=== PATIENT | male | born 1960 ===

== ENCOUNTER → 2022-07-30 09:44 | Outpatient (CLI) | payer OTHER, SELFPAY ==
--- NOTE | ~2022-07-30 | MR_ITS ---
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 TECHNIQUE: Magnetic resonance imaging (MRI) of the face was performed without and with 20 mL Multihan ce intravenous contrast. A marker was placed over the site of the excision. Sequences included axial and coronal T1-weighted FSE and T2-weighted FS FSE, axial T1-weighted FS FSE and post contrast axial and coronal T1-weighted FS FSE. COMPARISON: None. FINDINGS: No evident nodular soft tissue density or non masslike enhancement in the subcutaneous tissues underl shaun the marker the region of concern which overlies the cephalad aspect of the left temporalis muscl e. Indeterminate 1.4 x 1.1 cm lobular enhancing nodule within the cephalad aspect of the left parotid gland. There is additional 1.9 x 1.2 cm enhancing nodule anterior to the left sternocleidomastoid wi thin the caudal aspect of the left parotid gland. Both lesions are most concerning for metastatic lym ph nodes although differential for both would include primary parotid neoplasm either benign or malig nant. There are multiple additional old with symmetric normal sized subcentimeter bilateral cervical lymph nodes. Bilateral orbits are normal. Mild mucosal thickening in the bilateral frontal and anteri or ethmoid sinuses. There is prominent mucosal thickening and central nonenhancing fluid/mucus comple tely filling the right maxillary sinus. Moderate scattered periventricular predominant white matter T 2 hyperintensity within the visualized brain consistent with chronic small vessel ischemic disease. N o abnormally enhancing brain lesions. Bones are also unremarkable with normal marrow signal throughou t. IMPRESSION: 1. A couple enhancing nodules in the left parotid gland, the larger measuring 0.9 x 1.2 cm which are concerning for metastatic lymph nodes related to a reported recently resected left facial squamous ce ll carcinoma and with differential including primary parotid neoplasm either benign or malignant. Rec ommend ultrasound-guided fine-needle aspiration. Reviewed, dictated and finalized at location A. IMPRESSION: 1. A couple enhancing nodules in the left parotid gland, the larger measuring 0 .9 x 1.2 cm which are concerning for metastatic lymph nodes related to a report ed recently resected left facial squamous cell carcinoma and with differential including primary parotid neoplasm either benign or malignant. Recommend ultras ound-guided fine-needle aspiration.
== END ==
PROVIDERS: PCP Family Medicine
DX: C44.92 Squamous cell carcinoma of skin, unspecified (principal)
CPT/HCPCS: 70543; A9577